=== PATIENT | female | born 1940 | race Caucasian/White ===

== ENCOUNTER → 2019-07-05 09:04 | Outpatient (BNVA) | payer MEDICARE, SELFPAY | PROVIDERS: Family Provider Nurse Practitioner Family; PCP Nurse Practitioner Family; Visit Provider Nurse Practitioner Family | DX: N39.0 Urinary tract infection, site not specified (principal); R05 Cough | CPT/HCPCS: 81003; 87077; 87086; 87186 ==

== ENCOUNTER → 2019-11-02 09:43 | Outpatient (BNVA) | payer MEDICARE, SELFPAY | PROVIDERS: Family Provider Nurse Practitioner Family; PCP Nurse Practitioner Family; Visit Provider Nurse Practitioner Family | DX: R53.83 Other fatigue (principal); R53.82 Chronic fatigue, unspecified; M79.10 Myalgia, unspecified site; R39.9 Unspecified symptoms and signs involving the genitourinary system; E11.9 Type 2 diabetes mellitus without complications; E78.5 Hyperlipidemia, unspecified | CPT/HCPCS: 80053; 80061; 81003; 82306; 83036; 85025; 87077; 87086; 87186 ==

== ENCOUNTER 2019-12-04 14:06 | Outpatient (CLI) | payer MEDICARE, SELFPAY ==
--- NOTE | 2019-12-04 14:11 | XR_ITS ---
WS: [id number] RIBS LEFT TECHNIQUE: 3 views left ribs CLINICAL INFORMATION: SPRAIN OF RIBS 0 COMPARISON: None. FINDINGS: Left ribs are normal in appearance. No visualized left rib fractures. Left lung is well aerated. XR/XR ribs LT 2V* [id number] IMPRESSION: Unremarkable left ribs
== END 2019-12-04 14:07 | disposition home or self-care (01) ==
PROVIDERS: Family Provider Nurse Practitioner; PCP Nurse Practitioner; Visit Provider Nurse Practitioner
DX: S23.41XA Sprain of ribs, initial encounter (principal); X58.XXXA Exposure to other specified factors, initial encounter
CPT/HCPCS: 71100

== ENCOUNTER 2019-12-12 15:33 | Outpatient (CLI) | payer MEDICARE, SELFPAY ==
--- NOTE | 2019-12-12 16:15 | XR_ITS ---
WS: [id number] Bone mineral density performed on a [place], 12/12/2019 Clinical data: post menopausal Findings: The first 4 lumbar vertebral bodies demonstrated the bone mineral density of 0.963 g/cm2 for a young adult T score of -1.8. Measurement of the left hip reveals a bone mineral density of 0.977 g/cm2 with a young adult T score of -0.2. Measurement of the right hip reveals the bone mineral density of 0.922 g/cm2 for young adult T score of -0.7. XR/XR DEXA axial skeleton* [id number] Impression: 1. Osteopenia of the lumbar spine. 2. Normal bone mineral density of both hips.
== END 2019-12-12 15:34 | disposition home or self-care (01) ==
LOC: RADWPI 15:36
PROVIDERS: Family Provider Nurse Practitioner; PCP Nurse Practitioner; Visit Provider Nurse Practitioner Family
DX: Z78.0 Asymptomatic menopausal state (principal); M85.88 Other specified disorders of bone density and structure, other site
CPT/HCPCS: 77080

== ENCOUNTER 2020-02-13 14:51 | Outpatient (CLI) | payer MEDICARE, SELFPAY ==
--- NOTE | 2020-02-13 15:08 | CT_ITS ---
WS: [id number] CT CHEST TECHNIQUE: Noncontrast CT of the chest with coronal and sagittal reformatted images. CLINICAL INFORMATION: PULMONARY MASS FOUND ON DIAGNOSTIC IMAGING OF LUNG COMPARISON: None. DLP: 722.[address] scans at [facility] use at least one of these dose optimization techniques: automat ed exposure control; mA and/or kV adjustment per patient size (includes targeted exams where dose is matched to clinical indication); or iterative reconstruction. FINDINGS: Mild chronic emphysematous changes. No acute pulmonary infiltrates. No focal pneumonia. No pleural fl uid. No suspicious pulmonary parenchymal opacities. Thyroid gland is unremarkable. Aortic calcification. Coronary calcification. No mediastinal or hilar lymphadenopathy. No axillary lymphadenopathy. Small bilateral adrenal adenomas measuring 10 mm. Normal GE junction. CT/CT chest wo con [id number] IMPRESSION: 1. Mild chronic emphysematous changes. No suspicious pulmonary parenchymal opa cities. 2. No acute pulmonary infiltrates. 3. Normal caliber thoracic aorta. 4. Aortic and coronary calcification. 5. No mediastinal or hilar lymphadenopathy. 6. Incidental bilateral adrenal adenomas measuring 10 mm.
== END 2020-02-13 14:52 | disposition home or self-care (01) ==
LOC: RADWPI 14:56
PROVIDERS: Family Provider Nurse Practitioner; PCP Nurse Practitioner; Visit Provider Nurse Practitioner
DX: R91.8 Other nonspecific abnormal finding of lung field (principal); J43.9 Emphysema, unspecified; I25.10 Atherosclerotic heart disease of native coronary artery without angina pectoris; I70.0 Atherosclerosis of aorta; D35.02 Benign neoplasm of left adrenal gland; D35.01 Benign neoplasm of right adrenal gland
CPT/HCPCS: 71250

== ENCOUNTER 2020-04-09 09:59 | Outpatient (CLI) | payer MEDICARE, SELFPAY ==
[2020-04-09 10:11] VITALS: BMI 20.2
--- NOTE | 2020-04-09 10:12 | ECG_ITS ---
[facility] Test Date: 2020-04-09 Pat Name: Nelsy Dixon Department: Room: Gender: Female Project Architect: Rebekah Zamora : 1940 Requested By: Margaret Govea Order Number: [id number] Clair MD: Margaret Govea M.D. Interpretive Statements NAME OF STUDY: LEXISCAN SESTAMIBI STRESS TEST INDICATION: Chest Pain PROCEDURE: At the baseline, the blood pressure was 142/67 mmHg, oxygen saturation 96% with a heart rate of 81 bpm. The electrocardiogram showed normal sinus rhythm, normal axis with nonspecific ST depression. The Lexiscan was infused over a period of 20 seconds. A total of 0.4 milligrams of Lexiscan was infused. The stress phase was continued for a total of 5 minutes. Heart rate at the end of the stress phase was 90 bpm, oxygen saturation saturation 97% with a blood pressure of 147/69 mmHg. The EKG at the peak infusion revealed no significant ST-T wave changes. Sestamibi was injected 20 seconds after the Lexiscan infusion. Blood pressure at the end of the recovery phase was 149/67 mmHg, oxygen saturation 94% with a heart rate of 88 beats per minute. CONCLUSION: 1. No significant EKG changes with the LexiScan infusion. 2. No LexiScan induced chest pain or cardiac arrhythmia. 3. Normal blood pressure and heart rate response. 4. Sestamibi/sestamibi perfusion scan pending; see separate report. Electronically Signed On 04-09-2020 18:07:10 CDT by Margaret Govea M.D. [email or web address]
--- NOTE | 2020-04-09 10:15 | NMCV_ITS ---
NM jeanette perf SPECT r/s* [id number] Nelsy Dixon Age: 79 Gender: F : 1940 Exam Date: 04/09/2020 10:15 Ordering Phys: Margaret Govea MD ([email or web address]) Technologist: SAUL To Exam Location: [facility] Indications: Fatigue, SOB STRESS TEST Please see separate stress test report in [facility] for full findings IMAGE PROTOCOL Rest/Stress 1 Lexiscan Day Radiopharmaceutical Dose (mCi) Administration Site Administered by Rest: Tc-99m 10.9 IV SAUL To Sestamibi Stress:Tc-99m 32.8 IV SAUL Rausch Sestamibi Rest: 09-Apr-2020 60 Discovery 630 Stress: 09-Apr-2020 45 Discovery 630 0.4mg Lexiscan. Images obtained in supine and prone position. SPECT RESULTS Technical Quality: Good Raw Data Analysis: Normal Image Corrections: No attenuation or motion correction applied Summed Stress Score: 0 Summed Rest Score: 0 Summed Difference Score: 0 PERFUSION FINDINGS SPECT images demonstrate homogeneous tracer distribution throughout the myocardium. FUNCTIONAL RESULTS (calculated via Gated SPECT) Stress Image LV EF (%): 71 Stress EDV (mL):56 TID: 1.11 Stress ESV (mL):16 FUNCTIONAL FINDINGS: The left ventricle is normal in size. Transient Ischemia Dilatation of 1.1. There is normal left ventricular systolic function. The left ventricular ejection fraction is normal with a value of 71%. There is normal left ventricular wall thickening. Normal end-diastolic and end-systolic volumes. IMPRESSIONS 1. Myocardial perfusion imaging is normal. 2. Overall left ventricular systolic function is normal without regional wall motion abnormalities. 3. The left ventricular ejection fraction is normal with a value of 71%. 4. This study suggests a low likelihood of angiographically significant coronary artery disease. 5. No prior similar studies to compare. Margaret Govea MD (Electronically Signed) Final Date: 09 April 2020 17:49 S
[2020-04-09 12:14] VITALS: BP 152/64; PULSE 90
[2020-04-09] MEDS: regadenoson 0.4 Mg/5 ml Syringe IVP (12:14)
== END 2020-04-09 10:00 | disposition home or self-care (01) ==
LOC: CDL 10:03
PROVIDERS: PCP Nurse Practitioner; Visit Provider Internal Medicine Cardiovascular Disease
DX: R06.02 Shortness of breath (principal); R07.9 Chest pain, unspecified; R53.83 Other fatigue
CPT/HCPCS: 78452; 93017; A9500; J2785

== ENCOUNTER → 2020-04-26 12:14 | Outpatient (BNVA) | payer MEDICARE, SELFPAY | PROVIDERS: Family Provider Nurse Practitioner; PCP Nurse Practitioner; Visit Provider Internal Medicine Cardiovascular Disease | DX: E78.2 Mixed hyperlipidemia (principal); I10 Essential (primary) hypertension | CPT/HCPCS: 80053; 84443; 85025 ==

== ENCOUNTER → 2020-12-05 16:22 | Outpatient (BNVA) | payer MEDICARE, SELFPAY | PROVIDERS: Family Provider Nurse Practitioner; PCP Nurse Practitioner; Visit Provider Nurse Practitioner Family | DX: N39.0 Urinary tract infection, site not specified (principal) | CPT/HCPCS: 81003; 87086 ==

== ENCOUNTER → 2021-07-01 09:53 | Outpatient (BNVA) | payer MEDICARE, SELFPAY | PROVIDERS: Family Provider Nurse Practitioner; PCP Nurse Practitioner; Referring Provider Nurse Practitioner; Visit Provider Internal Medicine | DX: E11.9 Type 2 diabetes mellitus without complications (principal); R54 Age-related physical debility; W19.XXXA Unspecified fall, initial encounter; Z87.891 Personal history of nicotine dependence; R06.02 Shortness of breath | CPT/HCPCS: 99204 ==

== ENCOUNTER → 2021-07-07 13:00 | Outpatient (BNVA) | payer MEDICARE, SELFPAY | PROVIDERS: Family Provider Nurse Practitioner; PCP Nurse Practitioner; Visit Provider Internal Medicine | DX: E11.9 Type 2 diabetes mellitus without complications (principal); W19.XXXA Unspecified fall, initial encounter | CPT/HCPCS: 82728; 83540; 84439; 84443; 85025 ==

== ENCOUNTER → 2021-09-11 14:27 | Outpatient (BNVA) | payer MEDICARE, SELFPAY | PROVIDERS: Family Provider Nurse Practitioner; PCP Nurse Practitioner; Visit Provider Internal Medicine | DX: E11.9 Type 2 diabetes mellitus without complications (principal); W19.XXXA Unspecified fall, initial encounter; X58.XXXA Exposure to other specified factors, initial encounter; R54 Age-related physical debility; Z87.891 Personal history of nicotine dependence | CPT/HCPCS: 83036; 99214 ==

== ENCOUNTER 2021-09-11 15:04 | Outpatient (CLI) | payer MEDICARE, SELFPAY ==
[2021-09-11 16:28] LABS: Estmated Average Glucose 186; Hemoglobin A1C 8.1 % (4.0-6.0)
== END 2021-09-11 15:05 | disposition home or self-care (01) ==
LOC: LAB 15:09
PROVIDERS: PCP Nurse Practitioner; Visit Provider Internal Medicine
DX: E11.9 Type 2 diabetes mellitus without complications (principal)
CPT/HCPCS: 83036

== ENCOUNTER → 2021-11-11 14:16 | Outpatient (BNVA) | payer MEDICARE, SELFPAY | PROVIDERS: PCP Nurse Practitioner; Visit Provider Internal Medicine Cardiovascular Disease | DX: R06.02 Shortness of breath (principal); R53.83 Other fatigue; I10 Essential (primary) hypertension; E11.9 Type 2 diabetes mellitus without complications; E78.2 Mixed hyperlipidemia; Z87.891 Personal history of nicotine dependence | CPT/HCPCS: 80053; 80061; 83880; 84443; 85025; 99214 ==

== ENCOUNTER 2022-03-05 10:43 | Outpatient (CLI) | payer MEDICARE, SELFPAY ==
--- NOTE | 2022-03-05 11:00 | USCV_ITS ---
Nelsy Dixon Age: 81 Gender: F : 1940 Exam Date: 03/05/2022 11:09 Ordering Phys: Margaret Govea MD ([email or web address]) Technologist: Andreia Gaona [place] [facility] [place]ication: SOB BP: 132 / 85 HR: 69 Rhythm: Sinus Technical Quality: Adequate MEASUREMENTS (Male / Female) Normal Values 2D ECHO LV Diastolic Diameter PLAX 4.4 cm 4.2 - 5.9 / 3.9 - 5.3 cm LV Systolic Diameter PLAX 2.5 cm IVS Diastolic Thickness 0.8 cm 0.6 - 1.0 / 0.6 - 0.9 cm IVS Systolic Thickness 1.2 cm LVPW Diastolic Thickness 0.6 cm 0.6 - 1.0 / 0.6 - 0.9 cm LVPW Systolic Thickness 1.6 cm LVOT Diameter 2.0 cm LV Ejection Fraction 2D Teich 73.2 % LV Ejection Fraction MOD 2C 63.6 % LV Ejection Fraction 2C AL 63.9 % LA Diameter 2.1 cm LA Width 3.1 cm LA Height 3.1 cm RA Width 3.5 cm RA Height 3.8 cm Aorta at Sinotubular Diameter 2.9 cm IVC Diameter 1.7 cm M-MODE MV E Point Septal Separation 0.4 cm DOPPLER AV Peak Velocity 77.0 cm/s LVOT Peak Velocity 69.0 cm/s AV Area Cont Eq vti 2.2 cm squared AV Area Cont Eq pk 2.8 cm squared MV Peak Velocity 106.0 cm/s MV Area PHT 3.9 cm squared Mitral E to A Ratio 0.6 MV E' Velocity 54.0 cm/s TR Peak Velocity 212.5 cm/s TR Peak Gradient 18.1 mmHg Right Atrial Pressure 3.0 mmHg Pulmonary Artery Systolic Pressu 21.1 mmHg RV Acceleration Time 0.1 s RV Ejection Time 0.2 s RV AcT/ET 0.4 FINDINGS Left Ventricle Left ventricle is normal size. LV systolic function is normal with EF of 55 to 60%. No regional wall motion abnormalities are seen. Grade 1 diastolic dysfunction Right Ventricle Grossly normal in size and function Right Atrium Normal in size Left Atrium Normal in size Mitral Valve Grossly normal Aortic Valve Not well-visualized Tricuspid Valve Trace tricuspid regurgitation. Pulmonary artery systolic pressure is normal Pulmonic Valve Not well-visualized Pericardium Grossly normal Aorta Normal in size IVC IVC appears to be normal CONCLUSIONS Technically limited quality echocardiogram. LV systolic function is normal with EF 55 to 60%. Grade 1 diastolic dysfunction. Valvular structures are not well visualized Trace tricuspid regurgitation No comparison studies are available Jamal Bundy MD (Electronically Signed) Final Date: 12 March 2022 10:31 S
[2022-03-05] MEDS: perflutren protein-a microsphr 0.22 mg/mL SDV 3 mL IV (12:04)
== END 2022-03-05 10:44 | disposition home or self-care (01) ==
PROVIDERS: PCP Nurse Practitioner; Visit Provider Internal Medicine Cardiovascular Disease
DX: I07.1 Rheumatic tricuspid insufficiency (principal); R06.02 Shortness of breath
CPT/HCPCS: C8929

== ENCOUNTER → 2022-05-05 10:18 | Outpatient (BNVA) | payer MEDICARE, SELFPAY | PROVIDERS: PCP Nurse Practitioner; Visit Provider Podiatrist Foot & Ankle Surgery | DX: G62.9 Polyneuropathy, unspecified (principal); E11.9 Type 2 diabetes mellitus without complications; B35.1 Tinea unguium; M20.41 Other hammer toe(s) (acquired), right foot; M20.42 Other hammer toe(s) (acquired), left foot; M21.6X1 Other acquired deformities of right foot; M21.6X2 Other acquired deformities of left foot; Q82.8 Other specified congenital malformations of skin; M77.41 Metatarsalgia, right foot; M77.42 Metatarsalgia, left foot | CPT/HCPCS: 11721; 17110; 99204 ==

== ENCOUNTER → 2022-07-14 10:27 | Outpatient (BNVA) | payer MEDICARE, SELFPAY | PROVIDERS: PCP Nurse Practitioner; Visit Provider Podiatrist Foot & Ankle Surgery | DX: E11.9 Type 2 diabetes mellitus without complications (principal); G62.9 Polyneuropathy, unspecified; B35.1 Tinea unguium; M20.41 Other hammer toe(s) (acquired), right foot; M20.42 Other hammer toe(s) (acquired), left foot; M21.6X1 Other acquired deformities of right foot; M21.6X2 Other acquired deformities of left foot; Q82.8 Other specified congenital malformations of skin; M77.41 Metatarsalgia, right foot; M77.42 Metatarsalgia, left foot | CPT/HCPCS: 11055; 99213 ==

== ENCOUNTER → 2022-09-01 14:15 | Outpatient (BNVA) | payer MEDICARE, SELFPAY | PROVIDERS: PCP Nurse Practitioner; Visit Provider Podiatrist Foot & Ankle Surgery | DX: E11.21 Type 2 diabetes mellitus with diabetic nephropathy (principal); G62.9 Polyneuropathy, unspecified; B35.1 Tinea unguium; M20.41 Other hammer toe(s) (acquired), right foot; M20.42 Other hammer toe(s) (acquired), left foot; M21.6X1 Other acquired deformities of right foot; M21.6X2 Other acquired deformities of left foot; Q82.8 Other specified congenital malformations of skin; M77.41 Metatarsalgia, right foot; M77.42 Metatarsalgia, left foot | CPT/HCPCS: 11721 ==

== ENCOUNTER 2022-09-08 14:19 | Outpatient (CLI) | payer MEDICARE, SELFPAY | END 2022-09-08 14:20 | disposition home or self-care (01) | LOC: SPT 14:20 | PROVIDERS: PCP Nurse Practitioner; Visit Provider Podiatrist Foot & Ankle Surgery | DX: Z46.89 Encounter for fitting and adjustment of other specified devices (principal); E11.42 Type 2 diabetes mellitus with diabetic polyneuropathy; M79.673 Pain in unspecified foot | CPT/HCPCS: 97760; L3030 ==

== ENCOUNTER 2023-08-11 13:21 | Outpatient (CLI) | payer MEDICARE, SELFPAY ==
--- NOTE | 2023-08-11 13:30 | MM_ITS ---
WS: [id number] Bilateral screening 3D tomosynthesis digital mammogram, 08/11/2023 Clinical Data: SCREENING Comparison: 05/18/2022, 03/30/2022, 02/24/2021, 12/05/2018, 11/16/2017. Findings: The breast parenchymal pattern shows fibroglandular tissue. No spiculated masses or clustered calcifi cations are seen. There are no secondary signs of carcinoma. There are calcifications in the gould of small vessels. There are mole markers on both breasts. Impression: 1. Negative bilateral mammogram unchanged. 2. Recommend annual screening mammograms. MM/[place] [id number] BIRADS: 1-Negative FOLLOW UP: 1 Year Follow-up The CAD mechanical car checker was used.
== END 2023-08-11 13:22 | disposition home or self-care (01) ==
LOC: MOBLMAM 13:31
PROVIDERS: PCP Nurse Practitioner; Visit Provider Nurse Practitioner
DX: Z12.31 Encounter for screening mammogram for malignant neoplasm of breast (principal)
CPT/HCPCS: 77063; 77067

== ENCOUNTER → 2024-12-26 14:00 | Outpatient (BNVA) | payer MEDICARE, SELFPAY | PROVIDERS: PCP Nurse Practitioner; Visit Provider Family Medicine | DX: E11.9 Type 2 diabetes mellitus without complications (principal); R53.83 Other fatigue; I10 Essential (primary) hypertension; J44.9 Chronic obstructive pulmonary disease, unspecified; R06.02 Shortness of breath; E78.2 Mixed hyperlipidemia; E55.9 Vitamin D deficiency, unspecified; R79.89 Other specified abnormal findings of blood chemistry | CPT/HCPCS: 80053; 80061; 82043; 82306; 82607; 83036; 84443; 85025 ==

== ENCOUNTER → 2025-01-02 15:14 | Outpatient (BNVA) | payer MEDICARE, SELFPAY | PROVIDERS: PCP Family Medicine; Visit Provider Family Medicine | DX: R06.02 Shortness of breath (principal); M41.86 Other forms of scoliosis, lumbar region | CPT/HCPCS: 71046 ==

== ENCOUNTER → 2025-01-09 11:37 | Outpatient (BNVA) | payer MEDICARE, SELFPAY | PROVIDERS: PCP Family Medicine; Visit Provider Family Medicine | DX: R73.9 Hyperglycemia, unspecified (principal) | CPT/HCPCS: 82947 ==

== ENCOUNTER → 2025-01-29 11:30 | Outpatient (BNVA) | payer MEDICARE, SELFPAY | PROVIDERS: PCP Family Medicine; Visit Provider Family Medicine | DX: D50.8 Other iron deficiency anemias (principal); D35.00 Benign neoplasm of unspecified adrenal gland; I10 Essential (primary) hypertension; E11.9 Type 2 diabetes mellitus without complications; E87.6 Hypokalemia; T50.2X5A Adverse effect of carbonic-anhydrase inhibitors, benzothiadiazides and other diuretics, initial encounter; J96.11 Chronic respiratory failure with hypoxia | CPT/HCPCS: 80048; 82728; 83540; 83880; 85025 ==

== ENCOUNTER → 2025-05-17 13:45 | Outpatient (BNVA) | payer MEDICARE, SELFPAY | PROVIDERS: PCP Family Medicine; Visit Provider Family Medicine | DX: E55.9 Vitamin D deficiency, unspecified (principal); I10 Essential (primary) hypertension; E11.9 Type 2 diabetes mellitus without complications; Z79.4 Long term (current) use of insulin; J96.11 Chronic respiratory failure with hypoxia; R41.9 Unspecified symptoms and signs involving cognitive functions and awareness; R79.89 Other specified abnormal findings of blood chemistry | CPT/HCPCS: 80053; 82306; 82607; 82728; 83036; 83540; 85025 ==

== ENCOUNTER → 2025-05-22 15:08 | Outpatient (BNVA) | payer MEDICARE, SELFPAY | PROVIDERS: PCP Family Medicine; Visit Provider Family Medicine | DX: R73.9 Hyperglycemia, unspecified (principal) | CPT/HCPCS: 82947 ==

== ENCOUNTER → 2025-06-14 16:07 | Outpatient (BNVA) | payer MEDICARE, SELFPAY | PROVIDERS: PCP Family Medicine; Visit Provider Family Medicine | DX: R06.02 Shortness of breath (principal) | CPT/HCPCS: 71045; 80053; 82785; 85025; 85651; 86003; 86140 ==